=== PATIENT | female | born 1985 | race Caucasian/White ===

== ENCOUNTER 2020-10-30 18:00 | Emergency (ER) | payer OTHER ==
[~2020-10-30] VITALS: Ht 162.6 cm; Wt 81.7 kg
[~2020-10-30 18:00] MED LIST: BACTRIM DS TAB1 EACH PO; HYDROCODONE-AP1 EAC6 PO; IBUPROFEN 800800 M1 PO; NORCO 5-325 TA1 EAC1 PO; PERCOCET 5-3251 EACH PO; SILVADENE20 GM TP
[2020-10-30 18:25] LABS: URINE BILIRUBIN NEGATIVE (Negative); URINE BLOOD 2+ (Negative); URINE CLARITY SL CLOUDY; URINE COLOR YELLOW; URINE GLUCOSE-RANDOM NEGATIVE (Negative); URINE KETONES NEGATIVE (Negative); URINE NITRITE-REFLEX NEGATIVE (Negative); URINE PROTEIN NEGATIVE (Negative); URINE SPECIFIC GRAVITY 1.025 (1.005-1.030); URINE UROBILINOGEN 0.2 E.U./dl (0.2-1.0)
[2020-10-30 18:36] LABS: HEMATOCRIT 33.9 % (37.0-47.0); HEMOGLOBIN 10.1 gm/dL (12.0-15.0); MCH 20.7 pg (26.0-34.0); MCHC 29.9 g/dL (28.0-37.0); MCV 69.1 fL (80.0-100.0); NUCLEATED RBCS 0 /100WBC; PLATELET COUNT* 325 thou/uL (150-400); RBC 4.91 mil/uL (4.20-5.00); RDW-CV 17.7 % (10.5-14.5); WBC 11.1 thou/uL (4.0-11.0)
[2020-10-30 18:40] LABS: CALCIUM 8.9 mg/dL (8.5-10.1); POTASSIUM 3.5 mmol/L (3.5-5.1)
[2020-10-30 18:42] LABS: URINE LEUKOCYTES-REFLEX 3+ (Negative)
[2020-10-30 18:44] LABS: ALBUMIN 3.9 g/dL (3.4-5.0); TOTAL BILIRUBIN 0.1 mg/dL (<0.1-1.0); TOTAL PROTEIN 7.8 g/dL (6.4-8.2)
[2020-10-30 19:00] LABS: BACTERIA-REFLEX >30 Many /HPF (None Seen); CASTS None Seen /LPF (None Seen); SQUAMOUS 4-10 Moderate /LPF (0-3); URINE RBC 3-10 Few /HPF (0-2); URINE WBC-REFLEX 6-15 Few /HPF (0-5)
[2020-10-30 19:01] LABS: CRYSTALS None Seen /LPF (None Seen)
[2020-10-30] MEDS ORDERED: ZOFRAN ODT4 MG PO (19:20)
[2020-10-30] MEDS ORDERED: FLOMAX0.4 MG PO (19:20)
[2020-10-30] MEDS ORDERED: CEPHALEXIN500 MG PO (19:20)
[2020-10-30 19:42] LABS: ABSOLUTE LYMPHOCYTES 1.8 thou/uL (0.8-5.3); ABSOLUTE MONOCYTES 0.7 thou/uL (0.0-1.2); ABSOLUTE NEUTROPHILS 8.7 thou/uL (1.6-8.1); PLATELET ESTIMATE ADEQUATE
[2020-10-30 19:43] LABS: ANISOCYTOSIS 1+; HYPOCHROMASIA 3+; MICROCYTES 3+
[2020-10-30] MEDS ORDERED: HYDROCODON-ACE1 EAC8 PO (20:03)
[2020-10-30 20:28] VITALS: BP 123/65
== END 2020-10-30 20:28 | disposition home or self-care (01) ==
LOC: M.ERS 18:00
PROVIDERS: Nurse Practitioner Psychiatric/Mental Health
DX: N13.2 Hydronephrosis with renal and ureteral calculous obstruction (principal); Z98.51 Tubal ligation status; Z98.890 Other specified postprocedural states